=== PATIENT | female | born 1970 | race Caucasian/White ===

== ENCOUNTER → 2017-07-07 | Outpatient (CLI) | payer BC ==
[~2017-07-07] VITALS: Ht 160 cm; Wt 90.0 kg
[~2017-07-07] MED LIST: ATENOLOL25 MG PO; BENTYL 10MG10 MG/CAP PO; CLARITIN10 MG PO; DICLOFENAC POT.50 MG PO; ESTRACE0.1 MG/GM VG; ESTRADIOL0.5 M1 PO; KETOROLAC10 MG PO; MASON NATURAL2000 IU PO; MELATONIN3 M1 PO; NARATRIPTAN2.5 MG PO; PREMARIN 0.60.625 M1 PO; PROTONIX40 MG PO; VIBRAMYCIN HYC100 MG PO; ZYRTEC10 M3 PO
[2017-07-07 08:45] VITALS: BP 134/66
--- NOTE | 2017-07-07 09:50 | NUR ---
Pt reports itching allergy to hydrocodone and percocet. Agreeable to trying nubain.
--- NOTE | 2017-07-07 10:34 | NUR ---
Pt reports that PE[place] is not a "2" and she is ready to go home.
[2017-07-07 10:38] VITALS: BP 119/65
--- NOTE | 2017-07-07 10:47 | NUR ---
Pt reports that PEOPLES is less and ready to go home. Leaves ambulatory w/ - pt's gait steady. to drive pt home.
== END ==
LOC: AMSURD 08:34
DX: G43.809 Other migraine, not intractable, without status migrainosus (principal)
CPT/HCPCS: J1100; J1885; J2300; J7030

== ENCOUNTER → 2018-03-16 | Outpatient (CLI) | payer BC ==
[2017-07-07 10:38] VITALS: BP 119/65
== END ==
LOC: RAD 11:50
DX: M79.671 Pain in right foot (principal); Z88.1 Allergy status to other antibiotic agents; Z88.5 Allergy status to narcotic agent; Z88.0 Allergy status to penicillin

== ENCOUNTER 2019-03-09 18:47 | Emergency (ER) | payer BC ==
[~2019-03-09] VITALS: Ht 160 cm; Wt 72.7 kg
[2019-03-09] MEDS ORDERED: TRULANCE3 MG PO (19:22)
[2019-03-09] MEDS ORDERED: MYRBETRIQ50 MG PO (19:22)
[2019-03-09] MEDS ORDERED: BUSPIRONE HYDRO10 MG PO (19:22)
[2019-03-09] MEDS ORDERED: AIMOVIG AU70 MG/1 ML SQ (19:22)
[2019-03-09] MEDS ORDERED: MULTIVITAMIN1 SGL PO (19:24)
[2019-03-09 19:34] LABS: BASO # 0.1 (0.02-0.10); EOS # 0.1 (0.04-0.40); EOS % 1.3 % (1.0-5.0); HEMOGLOBIN 13.8 g/dL (12.5-16.0); LYMPH# 2.3 (1.50-4.00); MEAN CELL VOLUME 95 fl (78-100); MEAN CORPUSCULAR HEMOGLOBIN 31 pg (27-31); MEAN CORPUSCULAR HGB CONC 33 g/dL (33-37); MEAN PLATELET VOLUME 9.3 fl (7.4-10.4); PLATELET COUNT 292 K/mm3 (130-400); RED BLOOD COUNT 4.42 M/mm3 (4.10-5.30); RED CELL DISTRIBUTION WIDTH 12.5 % (11.5-14.5); WHITE BLOOD COUNT 8.5 K/mm3 (4.8-10.8)
[2019-03-09 19:45] LABS: ALBUMIN 3.8 g/dL (3.5-5.0); CALCIUM 8.9 mg/dL (8.4-10.2); POTASSIUM 4.6 mmol/L (3.6-5.0); TOTAL BILIRUBIN 0.4 mg/dL (0.2-1.3); TOTAL PROTEIN 6.6 g/dL (6.3-8.2)
[2019-03-09 19:46] LABS: URINE APPEARANCE CLEAR; URINE BILIRUBIN NEGATIVE (NEGATIVE); URINE BLOOD NEGATIVE (NEGATIVE); URINE COLOR YELLOW; URINE GLUCOSE NEGATIVE (NEGATIVE); URINE KETONE NEGATIVE (NEGATIVE); URINE LEUKOCYTE ESTERASE NEGATIVE (NEGATIVE); URINE NITRATE NEGATIVE (NEGATIVE); URINE PROTEIN(semi-quant) TRACE mg/dL (NEGATIVE); URINE UROBILINOGEN NORMAL (NORMAL); URINE WBC 0-1 /hpf (0-3)
[2019-03-09] MEDS ORDERED: TYLENOL WITH CO1 TA1 PO (20:36)
[2019-03-09 20:42] VITALS: BP 118/69
== END 2019-03-09 20:43 | disposition home or self-care (01) ==
LOC: ED 18:47
PROVIDERS: Family Medicine
DX: R10.13 Epigastric pain (principal); K21.9 Gastro-esophageal reflux disease without esophagitis; K58.1 Irritable bowel syndrome with constipation; G43.909 Migraine, unspecified, not intractable, without status migrainosus; Z90.712 Acquired absence of cervix with remaining uterus; Z87.448 Personal history of other diseases of urinary system

== ENCOUNTER → 2019-03-28 | Outpatient (CLI) | payer BC ==
[2019-03-09 20:42] VITALS: BP 118/69
[~2019-03-28] MED LIST changes: +AIMOVIG AU70 MG/1 ML SQ; +BUSPIRONE HYDRO10 MG PO; +MULTIVITAMIN1 SGL PO; +MYRBETRIQ50 MG PO; +TRULANCE3 MG PO; +TYLENOL WITH CO1 TA1 PO
== END ==
LOC: LAB 11:56
DX: N39.0 Urinary tract infection, site not specified (principal)

== ENCOUNTER → 2021-07-02 | Outpatient (CLI) | payer BC | LOC: MAMMO 09:58 | DX: Z13.820 Encounter for screening for osteoporosis (principal); Z82.62 Family history of osteoporosis ==

== ENCOUNTER → 2022-01-01 | Outpatient (CLI) | payer BC | LOC: RAD 10:22 | DX: R06.00 Dyspnea, unspecified (principal) ==

== ENCOUNTER → 2022-01-12 | Outpatient (CLI) | payer BC | LOC: RAD 11:44 | DX: M25.561 Pain in right knee (principal) ==

== ENCOUNTER → 2022-01-18 | Outpatient (CLI) | payer BC | LOC: RAD 07:58 | DX: M22.41 Chondromalacia patellae, right knee (principal) ==

== ENCOUNTER → 2022-12-10 | Outpatient (CLI) | payer BC ==
[2022-12-10 10:31] LABS: BASO # 0.05 K/mm3 (0.02-0.10); EOS # 0.11 K/mm3 (0.04-0.40); EOS % 1.7 % (1.0-5.0); HEMATOCRIT 44.8 % (37.0-47.0); LYMPH# 2.31 K/mm3 (1.50-4.00); MEAN CELL VOLUME 96 fl (78-100); MEAN CORPUSCULAR HEMOGLOBIN 32 pg (27-31); MEAN CORPUSCULAR HGB CONC 34 g/dL (33-37); MEAN PLATELET VOLUME 9.1 fl (7.4-10.4); MONO # 0.68 K/mm3 (0.20-0.80); NEU # 3.35 K/mm3 (1.40-6.50); PLATELET COUNT 291 K/mm3 (130-400); RED BLOOD COUNT 4.66 M/mm3 (4.10-5.30); RED CELL DISTRIBUTION WIDTH 12.2 % (11.5-14.5); WHITE BLOOD COUNT 6.5 K/mm3 (4.8-10.8)
== END ==
LOC: LAB 10:14
PROVIDERS: Physician Assistant
DX: Z51.81 Encounter for therapeutic drug level monitoring (principal); Z13.29 Encounter for screening for other suspected endocrine disorder; K21.9 Gastro-esophageal reflux disease without esophagitis; R68.89 Other general symptoms and signs; R53.83 Other fatigue; Z78.0 Asymptomatic menopausal state

== ENCOUNTER → 2024-02-08 | Outpatient (CLI) | payer BC ==
[2024-02-08 11:11] LABS: BASO # 0.03 K/mm3 (0.02-0.10); EOS # 0.08 K/mm3 (0.04-0.40); EOS % 1.3 % (1.0-5.0); HEMATOCRIT 45.9 % (37.0-47.0); HEMOGLOBIN 15.4 g/dL (12.5-16.0); LYMPH# 2.49 K/mm3 (1.50-4.00); MEAN CELL VOLUME 95 fl (78-100); MEAN CORPUSCULAR HEMOGLOBIN 32 pg (27-31); MEAN CORPUSCULAR HGB CONC 34 g/dL (33-37); MEAN PLATELET VOLUME 8.8 fl (7.4-10.4); MONO # 0.59 K/mm3 (0.20-0.80); NEU # 2.84 K/mm3 (1.40-6.50); PLATELET COUNT 333 K/mm3 (130-400); RED BLOOD COUNT 4.84 M/mm3 (4.10-5.30); RED CELL DISTRIBUTION WIDTH 11.7 % (11.5-14.5)
[2024-02-08 11:40] LABS: ALBUMIN 4.4 g/dL (3.5-5.0)
[2024-02-08 11:44] LABS: TOTAL BILIRUBIN 0.5 mg/dL (0.2-1.2)
== END ==
LOC: LAB 10:50
PROVIDERS: Physician Assistant
DX: Z13.29 Encounter for screening for other suspected endocrine disorder (principal); Z13.1 Encounter for screening for diabetes mellitus; K90.9 Intestinal malabsorption, unspecified

== ENCOUNTER → 2024-05-23 | Outpatient (CLI) | payer BC ==
[2024-05-23 11:38] LABS: CALCIUM 9.4 mg/dL (8.3-10.5)
== END ==
LOC: LAB 11:18
PROVIDERS: Physician Assistant
DX: R79.89 Other specified abnormal findings of blood chemistry (principal)

== ENCOUNTER → 2024-08-07 | Outpatient (CLI) | payer BC ==
[2024-08-07 08:36] LABS: BASO # 0.04 K/mm3 (0.02-0.10); EOS # 0.13 K/mm3 (0.04-0.40); EOS % 2.2 % (1.0-5.0); HEMATOCRIT 44.7 % (37.0-47.0); HEMOGLOBIN 14.8 g/dL (12.5-16.0); LYMPH# 1.96 K/mm3 (1.50-4.00); MEAN CELL VOLUME 97 fl (78-100); MEAN CORPUSCULAR HEMOGLOBIN 32 pg (27-31); MEAN CORPUSCULAR HGB CONC 33 g/dL (33-37); MEAN PLATELET VOLUME 8.7 fl (7.4-10.4); MONO # 0.59 K/mm3 (0.20-0.80); NEU # 3.23 K/mm3 (1.40-6.50); PLATELET COUNT 286 K/mm3 (130-400); RED CELL DISTRIBUTION WIDTH 12.5 % (11.5-14.5)
[2024-08-07 08:44] LABS: CALCIUM 9.5 mg/dL (8.3-10.5)
== END ==
LOC: LAB 08:20
PROVIDERS: Physician Assistant
DX: E87.5 Hyperkalemia (principal); R53.83 Other fatigue

== ENCOUNTER → 2024-11-06 | Outpatient (CLI) | payer BC ==
[2024-11-06 09:25] LABS: BASO # 0.05 K/mm3 (0.02-0.10); EOS # 0.14 K/mm3 (0.04-0.40); EOS % 2.4 % (1.0-5.0); HEMATOCRIT 45.7 % (37.0-47.0); HEMOGLOBIN 15.2 g/dL (12.5-16.0); LYMPH# 2.17 K/mm3 (1.50-4.00); MEAN CELL VOLUME 98 fl (78-100); MEAN CORPUSCULAR HEMOGLOBIN 33 pg (27-31); MEAN CORPUSCULAR HGB CONC 33 g/dL (33-37); MEAN PLATELET VOLUME 8.6 fl (7.4-10.4); PLATELET COUNT 294 K/mm3 (130-400); RED BLOOD COUNT 4.66 M/mm3 (4.10-5.30); RED CELL DISTRIBUTION WIDTH 12.3 % (11.5-14.5); WHITE BLOOD COUNT 5.8 K/mm3 (4.8-10.8)
[2024-11-06 09:29] LABS: CALCIUM 9.2 mg/dL (8.3-10.5)
== END ==
LOC: LAB 09:06
PROVIDERS: Physician Assistant
DX: D64.9 Anemia, unspecified (principal); E87.5 Hyperkalemia

== ENCOUNTER → 2025-02-22 | Outpatient (CLI) | payer BC | LOC: RAD 08:04 | DX: M53.3 Sacrococcygeal disorders, not elsewhere classified (principal) ==

== ENCOUNTER → 2025-02-28 | Outpatient (CLI) | payer BC | LOC: MAMMO 09:54 | DX: Z13.820 Encounter for screening for osteoporosis (principal); M85.88 Other specified disorders of bone density and structure, other site; Z78.0 Asymptomatic menopausal state ==